=== PATIENT | male | born 1965 | race Caucasian/White ===

== ENCOUNTER 2022-04-14 13:19 | Outpatient (RCR) | payer OTHER, SELFPAY | END 2022-04-15 23:59 | disposition home or self-care (01) | LOC: CR 13:19 | PROVIDERS: Visit Provider Internal Medicine Cardiovascular Disease | DX: I25.2 Old myocardial infarction (principal); Z95.5 Presence of coronary angioplasty implant and graft; Z51.89 Encounter for other specified aftercare | CPT/HCPCS: S9472 ==

== ENCOUNTER 2022-05-16 13:16 | Outpatient (RCR) | payer OTHER, SELFPAY | END 2022-05-16 23:59 | disposition home or self-care (01) | LOC: CR 13:16 | PROVIDERS: Visit Provider Internal Medicine Cardiovascular Disease | DX: I25.2 Old myocardial infarction (principal); Z95.5 Presence of coronary angioplasty implant and graft | CPT/HCPCS: S9472 ==

== ENCOUNTER 2022-06-13 12:57 | Outpatient (RCR) | payer OTHER, SELFPAY | END 2022-06-15 23:59 | disposition home or self-care (01) | LOC: CR 12:57 | PROVIDERS: Visit Provider Internal Medicine Cardiovascular Disease | DX: I25.2 Old myocardial infarction (principal); Z95.2 Presence of prosthetic heart valve; Z51.89 Encounter for other specified aftercare | CPT/HCPCS: S9472 ==

== ENCOUNTER 2022-06-30 13:51 | Outpatient (RCR) | payer OTHER, SELFPAY | END 2022-07-16 23:59 | disposition home or self-care (01) | LOC: CR 13:51 | PROVIDERS: Visit Provider Internal Medicine Cardiovascular Disease | DX: I25.2 Old myocardial infarction (principal); Z95.5 Presence of coronary angioplasty implant and graft; Z51.89 Encounter for other specified aftercare | CPT/HCPCS: S9472 ==